=== PATIENT | male | born 1970 | race African-American/Black ===

== ENCOUNTER 2023-09-25 20:29 | Emergency (ER) | payer OTHER, SELFPAY ==
[2023-09-25] MEDS ORDERED: Ibuprofen 200 MG TAB ONE (22:04)
[2023-09-25] MEDS ORDERED: Lidocaine 4% Patch TD SCH (22:15)
== END 2023-09-25 22:35 | disposition home or self-care (01) ==
LOC: CSHERS 20:29
DX: M54.2 Cervicalgia (principal); F17.210 Nicotine dependence, cigarettes, uncomplicated; V89.2XXA Person injured in unspecified motor-vehicle accident, traffic, initial encounter
CPT/HCPCS: 99284